=== PATIENT | female | born 1935 | race Caucasian/White ===

== ENCOUNTER → 2019-02-20 | Outpatient (CLI) | payer OTHER ==
--- NOTE | 2019-02-20 15:20 | PCVCIMAG ---
EXAM: BILATERAL RENAL ULTRASOUND AND BILATERAL RENAL DUPLEX INDICATION: Hypertension FINDINGS: Right kidney: Length measures 8.3 cm. No hydronephrosis or extensive renal scarring. Right renal duplex: Adequate technical quality. No sonographic evidence of renal artery stenosis. The aortic to renal artery ratio is 1.6. The renal vein is patent. Left kidney: Length measures 8.9 cm. No hydronephrosis or extensive renal scarring. Left renal duplex: Adequate technical quality. No sonographic evidence of renal artery stenosis. The aortic to renal artery ratio is 1.4. The renal vein is patent. Bladder: No obvious abnormalities. IMPRESSION: No significant renal artery stenosis. No hydronephrosis bilaterally. LOC:[id number]
--- NOTE | 2019-02-20 19:16 | PCVCIMAG ---
APPROVED REPORT Study performed: 02/20/2019 12:55:27 EXAM: Comprehensive 2D, Doppler, and color-flow Echocardiogram Patient Location: Echo lab Room #: 3Status: routine BSA: 1.71 HR: 51 bpmBP: 180/82 mmHg Rhythm: Bradycardia Other Information Study Quality: Adequate Risk Factors: Cardiac Risk Factors: HTN Indications Dyspnea Chest Tightness 2D Dimensions IVSd: 12.46 (7-11mm)LVOT Diam: 19.00 (18-24mm) LVDd: 41.14 mm PWd: 12.43 (7-11mm)Ascending Ao: 32.87 (22-36mm) LVDs: 26.76 (25-40mm) Left Atrium: 40.26 (27-40mm) Aortic Root: 33.51 mm Volumes Left Atrial Volume (Systole) Single Plane 4CH: 38.78 mLSingle Plane 2CH: 38.84 mL LA ESV Index: 23.00 mL/m2 Aortic Valve AoV Peak [place].: 1.25 m/s AO Peak Gr.: 6.22 mmHgLVOT Max P.53 mmHg LVOT Max V: 0.94 m/s SOURAV Vmax: 2.22 cm2 AI Vmax: 3.07 m/s AI [place]: 1.14 m/s2 AI PHT: 783.96 ms Mitral Valve E/A Ratio: 0.7 MV Decel. Time: 314.38 ms MV E Max [place].: 0.49 m/s MV A [place].: 0.67 m/s IVRT: 83.04 ms TDI E/Lateral E': 16.33E/Medial E': 12.25 Medial E' [place].: 0.04 m/s Lateral E' [place].: 0.03 m/s Pulmonary Valve PV Peak [place].: 0.59 m/sPV Peak Gr.: 1.37 mmHg VT End Vmax: 1.01 m/s Tricuspid Valve TR Peak [place].: 2.15 m/sRAP Estimate: 7.00 mmHg TR Peak Gr.: 18.52 mmHg PA Pressure: 26.00 mmHg Left Ventricle The left ventricle is normal size. There is normal LV segmental wall motion. Mild concentric left ventricular hypertrophy. Left ventricular systolic function is normal. The left ventricular ejection fraction is within the normal range. LVEF is 65%. Mild diastolic dysfunction is present (impaired relaxation pattern). Right Ventricle The right ventricle is normal size. The right ventricular systolic function is normal. At[place] The left atrium size is normal. The right atrium size is normal. Aortic Valve The aortic valve is normal in structure. Mild aortic regurgitation. There is no aortic valvular stenosis. Mitral Valve The mitral valve is normal in structure. Moderate mitral regurgitation. No evidence of mitral valve stenosis. Tricuspid Valve The tricuspid valve is normal in structure. Trace tricuspid regurgitation. Pulmonary artery pressure is 26 mmHg. Pulmonic Valve The pulmonary valve is normal in structure. Trace pulmonic regurgitation. Great Vessels The aortic root is normal in size. The ascending aorta is normal in size. IVC is normal in size and collapses >50% with inspiration. Pericardium There is no pericardial effusion. <Conclusion> The left ventricle is normal size. LVEF is 65%. Mild diastolic dysfunction is present (impaired relaxation pattern). The right ventricle is normal size. The left atrium size is normal. The aortic valve is normal in structure. Mild aortic regurgitation. Moderate mitral regurgitation. Trace tricuspid regurgitation. Pulmonary artery pressure is 26 mmHg. The aortic root is normal in size. There is no pericardial effusion.
== END | disposition home or self-care (01) ==
LOC: PCVCIMAG 12:01
PROVIDERS: ATTEND Internal Medicine Cardiovascular Disease
DX: I08.0 Rheumatic disorders of both mitral and aortic valves (principal); I10 Essential (primary) hypertension; Z87.891 Personal history of nicotine dependence
CPT/HCPCS: 76770; 93306; 93975